=== PATIENT | female | born 1945 | race Caucasian/White ===

== ENCOUNTER → 2024-06-06 | Day surgery (SDC) | payer MEDICARE ==
--- NOTE | 2024-06-15 11:32 | MM ---
Reason for Exam: Post Procedure Mammogram. Last screening mammogram was performed less than 1 month ago. Risk Values: Rocio 5 year model risk: 1.1%. NCI Lifetime model risk: 1.9%. Prior Study Comparison: 04/26/2022 Bilateral Screening Mammogram, [facility] . 04/28/2023 Bilateral Screening Mammogram, [facility] . 05/11/2024 Bilateral Screening Mammogram, [facility] . 05/18/2024 Right Diagnostic Mammogram, [facility] . Tissue Density: Right: The breasts are heterogeneously dense, which may obscure small masses. Pathology Description: Location: 1 o'clock. Marker Left Behind. Needle Type: Mammotone Cores: 8 Gauge: 13 The small 6 mm suspicious lesion 1:00 position right breast which corresponds to the mammographic abnormality is identified and targeted for biopsy. The procedure of ultrasound guided core biopsy was explained to the patient. Benefits, alternatives, and risks were discussed. An informed consent was then obtained. The patient was placed in supine positioning for imaging and for the procedure. The overlying skin was prepped and draped in usual sterile fashion. Lidocaine buffered with bicarbonate was used as anesthetic into the skin and subcutaneous tissue up to area of concern in the 1:00 right breast. Under ultrasound guidance, a 13-gauge vacuum-assisted mammotome Elite biopsy gun was used to obtain 8 core samples. Following this, a HydroMark coil clip was left in lesion. The patient tolerated the procedure well without any immediate complication. The patient was kept in the radiology department for short stay after the procedure and then discharged home in stable condition. Postprocedure mammogram: The patient was transferred to mammography for physician ordered post procedure mammogram for clip placement verification. Post procedure mammogram demonstrates satisfactory coil clip at the margin of the mammographic mass. IMPRESSION: Successful, uncomplicated ultrasound guided core biopsy of small suspicious 1:00 right breast mass; full pathology results to follow. [facility], , 06/06/2024 9:50 AM. Pathology Results: Result: Malignant, Invasive ductal carcinoma. Pathology and radiology were reviewed. Findings are concordant. RIGHT BREAST, ULTRASOUND GUIDED NEEDLE CORE BIOPSY: Invasive moderately differentiated ductal carcinoma (Grade 2). See Surgical Pathology Cancer Case Summary. Overall Assessment: Malignant Assessment: MG diagnostic mammo RT wo CAD - Right: Known biopsy proven malignancy, BI-RAD 6. Management: Surgical Consultation of the right breast. Electronically signed and approved by: Ella Joshua M.D. Radiologist
== END ==
LOC: RADUSWWP 07:36
PROVIDERS: ATTEND Internal Medicine
DX: N63.10 Unspecified lump in the right breast, unspecified quadrant (principal)
CPT/HCPCS: 88305; 88342; 88341; 77065; 19083; A4648